=== PATIENT | female | born 1935 | race Caucasian/White ===

== ENCOUNTER → 2016-10-22 | Outpatient (CLI) | payer MEDICARE, BC ==
--- NOTE | 2016-10-22 15:12 | REP ---
LEFT HAND SERIES, COMPLETE: 10/22/2016. Clinical history: Open wound. Findings. There are no prior studies. Four views are provided. There are minor degenerative changes at the first CMC joint and some of the MCP joints. There are marginal osteophytes of the IP joints without erosion noted. There is no visible or displaced fracture, avulsion, subluxation or focal bone lesion. Distal radius and ulna intact. Carpal bones and their joint spaces show no destructive lesion or fracture. Metacarpals without destructive lesion. I see no subcutaneous emphysema. There is some mild swelling about the third digit. Along the ulnar margin of the PIP joint of the second digit, there is a small ossific density likely a ligamentous calcification. I do not see subcutaneous emphysema to suggest cellulitis or definite abscess. Impression: 1. 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 Signed by Victor Manuel Mckeon MD 10/22/2016 03:30 P
== END ==
LOC: M WUC 13:36
PROVIDERS: ATTEND Physician Assistant
DX: S61.402A Unspecified open wound of left hand, initial encounter (principal); W54.0XXA Bitten by dog, initial encounter; M19.042 Primary osteoarthritis, left hand; X58.XXXA Exposure to other specified factors, initial encounter; Y92.89 Other specified places as the place of occurrence of the external cause; Y93.89 Activity, other specified; Y99.8 Other external cause status

== ENCOUNTER → 2016-10-29 | Outpatient (CLI) | payer MEDICARE, BC ==
[2016-10-29 13:10] LABS: ALBUMIN 3.8 GM/DL (3.2-5.2); ALBUMIN/GLOBULIN RATIO 1.52 (1.00-1.93); ALKALINE PHOSPHATASE 81 U/L (45-117); ALT/SGPT 18 U/L (12-78); ANION GAP 8 MEQ/L (8-16); AST/SGOT 14 U/L (15-37); BILIRUBIN,TOTAL 0.5 MG/DL (0.2-1.0); BLOOD UREA NITROGEN 17 MG/DL (7-18); CALCIUM LEVEL 9.8 MG/DL (8.8-10.2); CARBON DIOXIDE LEVEL 33 MEQ/L (21-32); CHLORIDE LEVEL 106 MEQ/L (98-107); CHOLESTEROL LEVEL 182 MG/DL (<200); CREATININE FOR GFR 0.71 MG/DL (0.55-1.02); GLOMERULAR FILTRATION RATE > 60.0 (>32); GLUCOSE, FASTING 116 MG/DL (83-110); PHOSPHORUS LEVEL 2.9 MG/DL (2.5-4.9); SODIUM LEVEL 147 MEQ/L (136-145); TOTAL PROTEIN 6.3 GM/DL (6.4-8.2); TRIGLYCERIDES LEVEL 122 MG/DL (<150); URIC ACID 5.6 MG/DL (2.6-6.0)
== END ==
LOC: M LAB 11:48
PROVIDERS: ATTEND Internal Medicine
DX: E11.40 Type 2 diabetes mellitus with diabetic neuropathy, unspecified (principal); I10 Essential (primary) hypertension

== ENCOUNTER → 2017-04-29 | Outpatient (CLI) | payer MEDICARE, BC ==
[2017-04-29 21:06] LABS: MEAN CORPUSCULAR HEMOGLOBIN 29.9 pg (27.0-33.0); MEAN CORPUSCULAR HGB CONC 32.3 g/dl (32.0-36.5); MEAN CORPUSCULAR VOLUME 92.7 fl (80.0-96.0); WHITE BLOOD COUNT 5.3 K/mm3 (4.0-10.0)
[2017-04-29 21:07] LABS: ALBUMIN 3.7 GM/DL (3.2-5.2); ALBUMIN/GLOBULIN RATIO 1.23 (1.00-1.93); ALKALINE PHOSPHATASE 72 U/L (45-117); ALT/SGPT 24 U/L (12-78); ANION GAP 8 MEQ/L (8-16); AST/SGOT 14 U/L (15-37); BILIRUBIN,TOTAL 0.3 MG/DL (0.2-1.0); BLOOD UREA NITROGEN 19 MG/DL (7-18); CALCIUM LEVEL 9.5 MG/DL (8.8-10.2); CARBON DIOXIDE LEVEL 31 MEQ/L (21-32); CHLORIDE LEVEL 107 MEQ/L (98-107); CHOLESTEROL LEVEL 230 MG/DL (<200); CREATININE FOR GFR 0.79 MG/DL (0.55-1.02); GLOMERULAR FILTRATION RATE > 60.0 (>32); GLUCOSE, FASTING 94 MG/DL (83-110); POTASSIUM SERUM 3.7 MEQ/L (3.5-5.1); SODIUM LEVEL 146 MEQ/L (136-145); TOTAL PROTEIN 6.7 GM/DL (6.4-8.2); TRIGLYCERIDES LEVEL 112 MG/DL (<150); URIC ACID 5.3 MG/DL (2.6-6.0)
== END ==
LOC: M ADAMS 16:07
PROVIDERS: ATTEND Internal Medicine
DX: I10 Essential (primary) hypertension (principal); E78.00 Pure hypercholesterolemia, unspecified; E11.40 Type 2 diabetes mellitus with diabetic neuropathy, unspecified; E03.9 Hypothyroidism, unspecified; G47.33 Obstructive sleep apnea (adult) (pediatric)

== ENCOUNTER → 2017-06-15 | Outpatient (CLI) | payer MEDICARE, BC ==
--- NOTE | 2017-06-15 15:58 | REP ---
LEFT FOOT, FOUR VIEWS: HISTORY: Pain. There is deformity of the head of the 5th metatarsal. A metal pin is present. There is no acute fracture or dislocation. There is narrowing of the 1st and 5th metatarsal phalangeal joint spaces. IMPRESSION: Degenerative change as described above. Signed by Nael Mendoza MD 06/15/2017 04:04 P
== END ==
LOC: M ADAMS 15:00
PROVIDERS: ATTEND Physician Assistant
DX: M25.572 Pain in left ankle and joints of left foot (principal)

== ENCOUNTER → 2017-09-29 | Outpatient (CLI) | payer MEDICARE, BC ==
[2017-10-01 00:06] LABS: Lyme Disease IgG/IgM Antibodie <0.91 ISR (0.00-0.90); Lyme Disease IgM Ab Quantitati <0.80 index (0.00-0.79)
== END ==
LOC: M LAB 12:24
DX: Z11.8 Encounter for screening for other infectious and parasitic diseases (principal)
CPT/HCPCS: 36415

== ENCOUNTER → 2017-10-24 | Outpatient (CLI) | payer MEDICARE, BC | LOC: M RAD 09:50 | DX: R26.89 Other abnormalities of gait and mobility (principal); M54.2 Cervicalgia; I25.9 Chronic ischemic heart disease, unspecified; I63.9 Cerebral infarction, unspecified | CPT/HCPCS: 70551 ==

== ENCOUNTER → 2017-10-30 | Outpatient (CLI) | payer MEDICARE, BC ==
[2017-10-30 11:32] LABS: ESTIMATED AVERAGE GLUCOSE 128 MG/DL (60-110); HEMOGLOBIN A1c 6.1 %
[2017-10-30 11:36] LABS: ALBUMIN 3.7 GM/DL (3.2-5.2); ALBUMIN/GLOBULIN RATIO 1.32 (1.00-1.93); ALKALINE PHOSPHATASE 76 U/L (45-117); ALT/SGPT 20 U/L (12-78); ANION GAP 7 MEQ/L (8-16); AST/SGOT 12 U/L (7-37); BILIRUBIN,TOTAL 0.4 MG/DL (0.2-1.0); BLOOD UREA NITROGEN 14 MG/DL (7-18); CALCIUM LEVEL 9.1 MG/DL (8.8-10.2); CARBON DIOXIDE LEVEL 31 MEQ/L (21-32); CHLORIDE LEVEL 107 MEQ/L (98-107); CHOLESTEROL LEVEL 216 MG/DL (<200); CHOLESTEROL RISK RATIO 2.918 (<5); GLOMERULAR FILTRATION RATE > 60.0 (>32); GLUCOSE, FASTING 102 MG/DL (70-100); HDL CHOLESTEROL 74 MG/DL (>40); LDH LACTATE DEHYDROGENASE 161 U/L (84-246); LDL CHOLESTEROL 123.2 MG/DL (<100); NON-HDL-C 142 MG/DL; PHOSPHORUS LEVEL 3.5 MG/DL (2.5-4.9); POTASSIUM SERUM 3.9 MEQ/L (3.5-5.1); SODIUM LEVEL 145 MEQ/L (136-145); THYROID STIMULATING HORMONE 0.198 uIU/ML (0.358-3.740); TOTAL PROTEIN 6.5 GM/DL (6.4-8.2); TRIGLYCERIDES LEVEL 94 MG/DL (<150); URIC ACID 4.7 MG/DL (2.6-6.0)
== END ==
LOC: M LAB 10:01
DX: E11.40 Type 2 diabetes mellitus with diabetic neuropathy, unspecified (principal); E03.9 Hypothyroidism, unspecified; E78.00 Pure hypercholesterolemia, unspecified; I10 Essential (primary) hypertension
CPT/HCPCS: 83615

== ENCOUNTER → 2018-03-17 | Outpatient (CLI) | payer MEDICARE, BC | LOC: M RAD 10:37 | DX: I70.213 Atherosclerosis of native arteries of extremities with intermittent claudication, bilateral legs (principal); M71.21 Synovial cyst of popliteal space [Baker], right knee | CPT/HCPCS: 93925 ==

== ENCOUNTER → 2018-03-31 | Outpatient (CLI) | payer MEDICARE, BC ==
[2018-03-31 15:06] LABS: BASO % 0.4 % (0.0-1.0); EOS # 0.2 10^3/uL (0.0-0.50); EOS % 4.8 % (0.0-3.0); HEMATOCRIT 35.5 % (36.0-47.0); HEMOGLOBIN 11.7 g/dl (12.0-15.5); IMMATURE GRANULOCYTE % 0.2 % (0-3.0); LYMPH # 1.9 10^3/uL (1.5-4.5); LYMPH % 38.7 % (24.0-44.0); MEAN CORPUSCULAR HEMOGLOBIN 30.3 pg (27.0-33.0); MONO # 0.5 10^3/uL (0.0-0.8); MONO % 9.5 % (0.0-5.0); NEUTROPHILS # 2.3 10^3/uL (1.8-7.7); NEUTROPHILS % 46.4 % (36.0-66.0); PLATELET COUNT, AUTOMATED 214 10^3/uL (150-450); RED BLOOD COUNT 3.86 10^6/uL (4.00-5.40); RED CELL DISTRIBUTION WIDTH 12.5 % (11.5-14.5)
[2018-03-31 15:12] LABS: ANION GAP 4 MEQ/L (8-16); BLOOD UREA NITROGEN 19 MG/DL (7-18); CALCIUM LEVEL 9.6 MG/DL (8.8-10.2); CARBON DIOXIDE LEVEL 34 MEQ/L (21-32); CHLORIDE LEVEL 107 MEQ/L (98-107); CREATININE FOR GFR 0.74 MG/DL (0.55-1.30); GLOMERULAR FILTRATION RATE > 60.0 (>32); GLUCOSE, FASTING 72 MG/DL (70-100); POTASSIUM SERUM 4.4 MEQ/L (3.5-5.1); SODIUM LEVEL 145 MEQ/L (136-145)
== END ==
LOC: M LAB 14:07
DX: R22.42 Localized swelling, mass and lump, left lower limb (principal); I70.213 Atherosclerosis of native arteries of extremities with intermittent claudication, bilateral legs
CPT/HCPCS: 80048

== ENCOUNTER → 2018-04-12 | Outpatient (CLI) | payer MEDICARE, BC ==
[~2018-04-12] MED LIST: HEPARIN 1,000 UNITS/ML 10ML VIAL (FOR RADIOLOGY& DIALYSIS ONLY) As Ordered; ISOVUE-300 61% 50ML VIAL (Q9967) As Ordered; MIDAZOLAM INJ 2 MG/2 ML VIAL (J2250) As Ordered; fentaNYL 100 MCG/2 ML INJECTION (J3010) As Ordered
== END | disposition home or self-care (01) ==
LOC: M IRPRO 08:04
DX: I70.213 Atherosclerosis of native arteries of extremities with intermittent claudication, bilateral legs (principal); I70.0 Atherosclerosis of aorta
CPT/HCPCS: 36247

== ENCOUNTER → 2018-09-10 | Outpatient (REF) | payer MEDICARE, BC ==
[~2018-09-10] MED LIST changes: +AMLO10TA5; -HEPARIN 1,000 UNITS/ML 10ML VIAL (FOR RADIOLOGY& DIALYSIS ONLY) As Ordered; +HYDR25TAB; -ISOVUE-300 61% 50ML VIAL (Q9967) As Ordered; +LOSA100T50; +METF500T13; -MIDAZOLAM INJ 2 MG/2 ML VIAL (J2250) As Ordered; +OMEG10002 PO; +PRAV40TA2; +SYMB16INH INH; +SYNT88TA2; +[UNRECOGNIZED DRUG - CODE] MT; -fentaNYL 100 MCG/2 ML INJECTION (J3010) As Ordered
[2018-09-10 19:09] LABS: APPEARANCE, URINE CLEAR (CLEAR); BACTERIA, URINE AUTO NEGATIVE (NEGATIVE); BILIRUBIN, URINE AUTO NEGATIVE (NEGATIVE); BLOOD, URINE BLOOD 1+ (NEGATIVE); COLOR, URINE YELLOW (YELLOW); GLUCOSE, URINE (UA) AUTO NEGATIVE (NEGATIVE); KETONE, URINE AUTO NEGATIVE (NEGATIVE); LEUKOCYTE ESTERASE, URINE AUTO NEGATIVE (NEGATIVE); MUCUS, URINE SMALL (NEGATIVE); NITRITE, URINE AUTO NEGATIVE (NEGATIVE); PROTEIN, URINE AUTO NEGATIVE (NEGATIVE); RBC, URINE AUTO 2 /HPF (0-3); SPECIFIC GRAVITY URINE AUTO 1.009 (1.002-1.035); SQUAMOUS EPITHELIAL CELL UR AU 0 /HPF (0-6); UROBILINOGEN, URINE AUTO 0.2 mg/dL (0.0-2.0); WBC, URINE AUTO 1 /HPF (0-3)
== END ==
LOC: M LAB REF 16:31
PROVIDERS: ATTEND Obstetrics & Gynecology
DX: N32.81 Overactive bladder (principal)

== ENCOUNTER 2018-09-22 14:02 | Emergency (ER) | payer MEDICARE, BC ==
[~2018-09-22] VITALS: Ht 162.6 cm; Wt 72.7 kg
[2018-09-22] MEDS ORDERED: AMLO10TA5 (14:17)
[2018-09-22] MEDS ORDERED: [UNRECOGNIZED DRUG - CODE] MT (14:17)
[2018-09-22] MEDS ORDERED: SYNT88TA2 (14:17)
[2018-09-22] MEDS ORDERED: SYMB16INH INH (14:17)
[2018-09-22] MEDS ORDERED: METF500T13 (14:17)
[2018-09-22] MEDS ORDERED: PRAV40TA2 (14:17)
[2018-09-22] MEDS ORDERED: OMEG10002 PO (14:17)
[2018-09-22] MEDS ORDERED: HYDR25TAB (14:17)
[2018-09-22] MEDS ORDERED: LOSA100T50 (14:17)
[2018-09-22 15:14] LABS: INFLUENZA A AMPLIFICATION NEGATIVE (NEGATIVE); INFLUENZA B AMPLIFICATION NEGATIVE (NEGATIVE)
--- NOTE | 2018-09-22 15:14 | REP ---
Chest two views HISTORY: Cough Comparison: None Linear density is present in the left lower lobe consistent with scar. The right lung is clear. The heart is normal in size. The pulmonary vasculature is normal in appearance. The bony structure is intact. The patient is status post bilateral shoulder arthroplasty. IMPRESSION: No acute disease. Electronically Signed by Nael Mendoza MD 09/22/2018 03:05 P
[2018-09-22 16:25] VITALS: O2SAT 97
[2018-09-22 16:50] LABS: BASO % 0.5 % (0.0-1.0); EOS # 0.3 10^3/uL (0.0-0.50); EOS % 3.1 % (0.0-3.0); HEMATOCRIT 38.4 % (36.0-47.0); HEMOGLOBIN 12.6 g/dl (12.0-15.5); LYMPH # 2.3 10^3/uL (1.5-4.5); LYMPH % 28.2 % (24.0-44.0); MEAN CORPUSCULAR HEMOGLOBIN 29.7 pg (27.0-33.0); MEAN CORPUSCULAR HGB CONC 32.8 g/dl (32.0-36.5); MEAN CORPUSCULAR VOLUME 90.6 fl (80.0-96.0); MONO # 0.5 10^3/uL (0.0-0.8); MONO % 6.4 % (0.0-5.0); NEUTROPHILS % 61.6 % (36.0-66.0); PLATELET COUNT, AUTOMATED 273 10^3/uL (150-450); RED BLOOD COUNT 4.24 10^6/uL (4.00-5.40); WHITE BLOOD COUNT 8.1 10^3/uL (4.0-10.0)
[2018-09-22 17:06] LABS: INR 0.96; PARTIAL THROMBOPLASTIN TIME 26.7 SECONDS (25.4-37.6); PROTHROMBIN TIME 12.9 SECONDS (12.1-14.4)
[2018-09-22 17:18] LABS: BLOOD UREA NITROGEN 11 MG/DL (7-18); CALCIUM LEVEL 9.4 MG/DL (8.8-10.2); CARBON DIOXIDE LEVEL 28 MEQ/L (21-32); CHLORIDE LEVEL 105 MEQ/L (98-107); CPK CREATINE PHOSPHOKINASE 197 U/L (26-192); CREATININE FOR GFR 0.61 MG/DL (0.55-1.30); GLOMERULAR FILTRATION RATE > 60.0 (>32); GLUCOSE, FASTING 91 MG/DL (70-100); MB/CK RELATIVE INDEX 0.96 (< OR =4); POTASSIUM SERUM 3.6 MEQ/L (3.5-5.1); SODIUM LEVEL 142 MEQ/L (136-145); TROPONIN I < 0.02 NG/ML (< 0.10)
[2018-09-22 17:41] VITALS: BP 159/74
--- NOTE | 2018-09-23 08:01 | ECGEPIP ---
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
== END 2018-09-22 17:53 | disposition home or self-care (01) ==
LOC: M ED 14:02
DX: J06.9 Acute upper respiratory infection, unspecified (principal)

== ENCOUNTER 2018-10-28 09:19 | Day surgery (SDC) | payer MEDICARE, BC ==
[~2018-10-28] VITALS: Ht 162.6 cm; Wt 72.6 kg
[~2018-10-28 09:19] MED LIST changes: +ALBU1.25 INH; +LR 1,000 ML IV ONE; +PRESCAP PO; +PREV10CA PO
[2018-10-28] MEDS ORDERED: ONDANSETRON 4MG/2ML VIAL (J2405) As Ordered ONE (10:43)
[2018-10-28] MEDS ORDERED: MIDAZOLAM INJ 2 MG/2 ML VIAL (J2250) As Ordered ONE (10:43)
[2018-10-28] MEDS ORDERED: LIDOCAINE 2% INJ 100 MG/5 ML SDV (FOR ANES.) As Ordered ONE (10:43)
[2018-10-28] MEDS ORDERED: dexameTHASONE 4 MG/ML 1ML VIAL (J1100) As Ordered ONE (10:43)
[2018-10-28] MEDS ORDERED: fentaNYL 100 MCG/2 ML INJECTION (J3010) As Ordered ONE (10:43)
[2018-10-28] MEDS ORDERED: PROPOFOL 200 MG/20 ML VIAL As Ordered ONE (10:43)
[2018-10-28] MEDS ORDERED: VASOPRESSIN INJ 20 UNITS/ML VIAL As Ordered ONE (12:21)
[2018-10-28] MEDS ORDERED: LR 1,000 ML IV SCH ×2 (14:30)
[2018-10-28] MEDS ORDERED: ONDANSETRON 4MG/2ML VIAL (J2405) IV PRN (14:30)
[2018-10-28] MEDS ORDERED: IBUPROFEN 600 MG TAB PO PRN (14:30)
[2018-10-28] MEDS ORDERED: PERCOCET 5MG/325MG TAB PO PRN (14:30)
[2018-10-28] MEDS ORDERED: NORCO, ANEXSIA 5/325MG TABLET (HYDROcodone/ACETAMINOPHEN) PO PRN (14:30)
[2018-10-28 17:26] VITALS: BP 178/77
--- NOTE | 2018-10-28 23:39 | RO ---
DATE OF PROCEDURE: 10/28/2018 PREOPERATIVE DIAGNOSIS: Incontinence with intrinsic sphincteric deficiency. POSTOPERATIVE DIAGNOSIS: Incontinence with intrinsic sphincteric deficiency. PROCEDURE: Midurethral sling Desara with cystourethroscopy. SURGEON: Dr. Keren Barragan BUILDING PERFORMANCE SPECIALIST: None. ANESTHESIA: LMA. DESCRIPTION OF PROCEDURE: Anay was brought to the operating room where sufficient LMA anesthesia was induced, and she was prepped, draped and positioned in the usual sterile fashion with just a curved [place] placed because even the [place] was a little wide for this patient, and we did not need a weighted retractor because it would have been injurious to her. We drained the bladder, then grasped the anterior aspect of the vagina and made a midline incision approximately a centimeter and a half cephalad from the urethral meatus, made about a centimeter and a half incision after injecting with diluted vasopressin. We then dissected with the [place] scissors for the tracks for the Desara and then carefully placed the red rubber shod stylet in the urethra to displace it to the patient's left as we placed the right side trocar. I then scoped her with the cystoscope and confirmed normal bladder contour and interior and normal ureteral jets and orifices, and normal trigone, and there is no evidence of injury from the right side trocar. We could see the course of that trocar as we evaluated it. We then turned our attention to the left side, and we were able to carefully empty the bladder, replace the red rubber shod stylet, carefully start the trocar in the track we had already dissected and then place the left side trocar. With scoping her after the placement of the left side trocar, we saw a perforation, so we pulled the trocar back out, emptied the bladder, repositioned, and placed the trocar again. This time we had no perforation, and we were away from the track of the previous perforation. We were able to visualize that cystoscopically; there was no active bleeding and a small injury, as is typical, with the small trocar Desara. It did not appear that she needed to be drained from this upon the dome of the bladder as pictured, and as a result, we then drained the bladder again, placed the spacer, the 8 [place] and the red rubber shod catheter and then kay up the Desara around those. And then when they were in the right position for a tension-free placement, we went ahead and removed the sheathing and trimmed the ends of the mesh. We then closed the vaginal wound with #2-0 Vicryl and closed the suprapubic wounds with #3-0 Vicryl and ended the procedure. Estimated blood loss for the procedure: Maybe 5 mL. Fluid replacement was crystalloid. Complications: We had a perforation not requiring repair, so no real complications requiring any kind of intervention. Condition and Disposition: Anay tolerated the procedure well and was recovering in the recovery room in good condition.
== END 2018-10-28 17:25 | disposition home or self-care (01) ==
LOC: M SDC 09:19
PROVIDERS: ATTEND Obstetrics & Gynecology
DX: N39.3 Stress incontinence (female) (male) (principal); N36.42 Intrinsic sphincter deficiency (ISD); I10 Essential (primary) hypertension; E78.5 Hyperlipidemia, unspecified; E11.9 Type 2 diabetes mellitus without complications; E03.9 Hypothyroidism, unspecified; G47.30 Sleep apnea, unspecified; J44.9 Chronic obstructive pulmonary disease, unspecified; Z79.899 Other long term (current) drug therapy; Z87.891 Personal history of nicotine dependence; Z79.84 Long term (current) use of oral hypoglycemic drugs
CPT/HCPCS: 57288; C1771; J0690; J1100; J2250; J2405; J3010

== ENCOUNTER → 2018-11-11 | Outpatient (REF) | payer MEDICARE, BC ==
[~2018-11-11] MED LIST changes: -LR 1,000 ML IV ONE
[2018-11-11 13:59] LABS: ALBUMIN 3.5 GM/DL (3.2-5.2); ALT/SGPT 17 U/L (12-78); BILIRUBIN,TOTAL 0.3 MG/DL (0.2-1.0); BLOOD UREA NITROGEN 16 MG/DL (7-18); CALCIUM LEVEL 9.7 MG/DL (8.8-10.2); CARBON DIOXIDE LEVEL 27 MEQ/L (21-32); CHLORIDE LEVEL 108 MEQ/L (98-107); CHOLESTEROL LEVEL 196 MG/DL (<200); CHOLESTEROL RISK RATIO 3.438 (<5); CREATININE FOR GFR 0.73 MG/DL (0.55-1.30); GLOMERULAR FILTRATION RATE > 60.0 (>32); GLUCOSE, FASTING 114 MG/DL (70-100); HDL CHOLESTEROL 57 MG/DL (>40); LDL CHOLESTEROL 123 MG/DL (<100); NON-HDL-C 139 MG/DL; POTASSIUM SERUM 4.1 MEQ/L (3.5-5.1); SODIUM LEVEL 147 MEQ/L (136-145); THYROID STIMULATING HORMONE 0.147 uIU/ML (0.358-3.740); TOTAL PROTEIN 6.5 GM/DL (6.4-8.2); TRIGLYCERIDES LEVEL 78 MG/DL (<150); VITAMIN B12 LEVEL 378 PG/ML (247-911)
[2018-11-11 14:21] LABS: MAU/CREAT RATIO 28.6 MCG/MG (0.0-30.0)
[2018-11-11 14:44] LABS: HEMOGLOBIN A1c 6.4 %
== END ==
LOC: M SFHCPLAZ 09:52
PROVIDERS: ATTEND Family Medicine
DX: E78.2 Mixed hyperlipidemia (principal); I10 Essential (primary) hypertension; E11.9 Type 2 diabetes mellitus without complications; E03.9 Hypothyroidism, unspecified; R26.89 Other abnormalities of gait and mobility
CPT/HCPCS: 80053; 80061; 82043; 82607; 83036; 84443; G0463

== ENCOUNTER → 2018-11-15 | Outpatient (REF) | payer MEDICARE, BC ==
[2018-11-15 12:50] LABS: BLOOD UREA NITROGEN 13 MG/DL (7-18); CALCIUM LEVEL 9.8 MG/DL (8.8-10.2); CARBON DIOXIDE LEVEL 30 MEQ/L (21-32); CHLORIDE LEVEL 104 MEQ/L (98-107); CREATININE FOR GFR 0.67 MG/DL (0.55-1.30); GLOMERULAR FILTRATION RATE > 60.0 (>32); GLUCOSE, FASTING 118 MG/DL (70-100); POTASSIUM SERUM 3.7 MEQ/L (3.5-5.1); SODIUM LEVEL 142 MEQ/L (136-145)
== END ==
LOC: M SFHCPLAZ 09:32
PROVIDERS: ATTEND Family Medicine
DX: E87.0 Hyperosmolality and hypernatremia (principal)

== ENCOUNTER → 2018-12-07 | Outpatient (CLI) | payer MEDICARE, BC ==
--- NOTE | 2018-12-07 15:30 | REP ---
Clinical: COPD with acute exacerbation . Comparison: 09/22/2018 . Technique: PA and lateral. Findings: The mediastinum and cardiac silhouette are normal. The lung croft are clear and without acute consolidation, effusion, or pneumothorax. The skeletal structures are intact and normal. Bilateral shoulder prosthesis noted. Impression: 1. No acute cardiopulmonary process. Electronically Signed by Carlos Parry MD 12/07/2018 03:21 P
== END ==
LOC: M LRY 14:53
PROVIDERS: ATTEND Physician Assistant
DX: J44.1 Chronic obstructive pulmonary disease with (acute) exacerbation (principal); Z96.611 Presence of right artificial shoulder joint; Z96.612 Presence of left artificial shoulder joint
CPT/HCPCS: 71046; 87804; G0463

== ENCOUNTER → 2018-12-27 | Outpatient (REF) | payer MEDICARE, BC | LOC: M SFHCPLAZ 09:15 | PROVIDERS: ATTEND Family Medicine | DX: E03.9 Hypothyroidism, unspecified (principal) ==

== ENCOUNTER → 2019-01-05 | Outpatient (CLI) | payer MEDICARE, BC ==
--- NOTE | 2019-01-05 15:07 | REP ---
BILATERAL LOWER EXTREMITY DUPLEX DOPPLER ARTERIAL ULTRASOUND: Real-time ultrasound evaluation and duplex Doppler interrogation of bilateral lower extremity arterial systems is performed. SRIDEVI right is 1.06 and left 0.95. There is mild atherosclerotic plaquing diffusely bilaterally. There is probable mild stenosis of the distal right superficial femoral artery. Biphasic and triphasic waveforms are seen throughout the lower extremity arterial systems bilaterally. Right PSV Left PSV Common femoral artery 139 cm/s 139 cm/s Profunda 80.8 cm/s 119 cm/s Proximal SFA 95.5 cm/s 128 cm/s Mid SFA 138 cm/s 131 cm/s Distal SFA 210 cm/s 61.4 cm/s Popliteal 46.7 cm/s 37.0 cm/s Proximal KEVYN 65.6 cm/s 30.8 cm/s Tibial peroneal trunk 60 cm/s 36.3 cm/s Proximal FORESTRY AND WILDLIFE MANAGER 50.9 cm/s 57.2 cm/s Distal FORESTRY AND WILDLIFE MANAGER 68.6 cm/s 58.5 cm/s Distal KEVYN 67.1 cm/s 81.1 cm/s IMPRESSION: Mild scattered atherosclerotic plaquing bilaterally. There are findings suggesting mild stenosis of the right distal superficial femoral artery. Electronically Signed by Conner Pratt MD 01/07/2019 11:54 A
== END ==
LOC: M RAD 12:38
PROVIDERS: ATTEND Surgery Vascular Surgery
DX: I70.213 Atherosclerosis of native arteries of extremities with intermittent claudication, bilateral legs (principal)